=== PATIENT | male | born 1990 | race American Indian/Alaskan Native ===

== ENCOUNTER 2019-04-26 10:23 | Emergency (ER) | payer OTHER ==
[2019-04-26 10:28] VITALS: BP 130/76
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
== END 2019-04-26 11:43 | disposition home or self-care (01) ==
LOC: ED 10:23
DX: S39.012A Strain of muscle, fascia and tendon of lower back, initial encounter (principal); V89.2XXA Person injured in unspecified motor-vehicle accident, traffic, initial encounter; Y93.89 Activity, other specified; Y92.488 Other paved roadways as the place of occurrence of the external cause; Y99.8 Other external cause status
CPT/HCPCS: 99282

== ENCOUNTER 2021-06-25 17:52 | Emergency (ER) | payer BC ==
[2021-06-25] MEDS ORDERED: MORPHINE 4 MG/1 ML INJ IV ONE (22:49)
[2021-06-25] MEDS ORDERED: SODIUM CHLORIDE 0.9% 1000 ML 1,000 ML IV ONE (22:51)
[2021-06-25] MEDS ORDERED: FAMOTIDINE 20 MG/2 ML INJ IV ONE (22:51)
[2021-06-25] MEDS ORDERED: ONDANSETRON 4 MG/2 ML INJ IV ONE (22:51)
--- NOTE | 2021-06-25 23:11 | Emergency Department Report ---
ED N/V/D HPI - General Chief complaint: Nausea/Vomiting/Diarrhea Stated complaint: CANNABINOID HYPEREMESIS PUI?: No Source: patient Mode of arrival: Ambulatory Limitations: No Limitations - History of Present Illness Initial comments: Patient is a 31-year-old -[place] male with a history of cyclic cannabis hyperemesis presents to the ED with acute exacerbation of his hyperemesis syndrome after smoking cannabis 2 days ago. Patient also complains of diffuse abdominal pain, diffuse body aches and pains, muscle spasm and diarrhea for the last 24 hours. Patient states that he has not been able to keep anything down since the onset of the symptoms and now feels generalized weakness and fatigue with lack of appetite. Patient denies hematemesis, hematochezia, fever, chills, dizziness, syncope, chest pain, shortness of breath, headache, palpitations, dysuria, urinary frequency and urgency or testicular pain. MD complaint: nausea, vomiting, diarrhea, abdominal pain -: Sudden, days(s) (2) Description of Vomiting: food contents, bilious Description of Diarrhea: water Associated Abdominal Pain: Yes (Diffuse) Location: diffuse Radiation: none Severity: severe Pain Scale: 7 Quality: cramping, sharp Consistency: constant Improves with: none Worsens with: none Context: other (Cannabis hyperemesis) Associated Symptoms: denies other symptoms, myalgias, loss of appetite, malaise, nausea/vomiting, weakness. denies: chest pain, cough, diaphoresis, fever/chills, headaches, rash, dysuria, shortness of breath, syncope - Related Data Previous Rx's Medication Instructions Recorded Last Taken Type Ibuprofen [Motrin 800 MG tab] 800 mg PO Q8HR PRN #20 tablet 04/26/19 Unknown Rx Methocarbamol [Robaxin] 500 mg PO BID PRN #15 tablet 04/26/19 Unknown Rx Dicyclomine [Bentyl] 20 mg PO Q6H PRN #30 tablet 06/26/21 Unknown Rx Famotidine [Pepcid] 20 mg PO BID #60 tablet 06/26/21 Unknown Rx Ondansetron [Zofran Odt] 4 mg PO Q6HR PRN #20 tab.rapdis 06/26/21 Unknown Rx Ziprasidone [Geodon] 20 mg PO Q12H #20 capsule 06/26/21 Unknown Rx Allergies Allergy/AdvReac Type Severity Reaction Status Date / Time No Known Allergies Allergy Verified 06/25/21 19:04 ED Review of Systems ROS: Stated complaint: CANNABINOID HYPEREMESIS Other details as noted in HPI Constitutional: malaise, weakness. denies: chills, fever Eyes: denies: eye pain, eye discharge, vision change ENT: denies: ear pain, throat pain Respiratory: denies: cough, shortness of breath, wheezing Cardiovascular: chest pain (Chest tightness). denies: palpitations Endocrine: no symptoms reported Gastrointestinal: abdominal pain, nausea, vomiting, diarrhea Genitourinary: denies: urgency, dysuria Musculoskeletal: back pain, arthralgia, myalgia. denies: joint swelling Skin: denies: rash, lesions Neurological: headache. denies: weakness, paresthesias Psychiatric: denies: anxiety, depression Hematological/Lymphatic: denies: easy bleeding, easy bruising ED Past Medical Hx - Past Medical History Previous Medical History?: Yes Additional medical history: hyperemesis - Social History Smoking Status: Never Smoker Substance Use Type: None - Medications Home Medications: Home Medications Medication Instructions Recorded Confirmed Last Taken Type Ibuprofen [Motrin 800 MG tab] 800 mg PO Q8HR PRN #20 tablet 04/26/19 Unknown Rx Methocarbamol [Robaxin] 500 mg PO BID PRN #15 tablet 04/26/19 Unknown Rx Dicyclomine [Bentyl] 20 mg PO Q6H PRN #30 tablet 06/26/21 Unknown Rx Famotidine [Pepcid] 20 mg PO BID #60 tablet 06/26/21 Unknown Rx Ondansetron [Zofran Odt] 4 mg PO Q6HR PRN #20 tab.rapdis 06/26/21 Unknown Rx Ziprasidone [Geodon] 20 mg PO Q12H #20 capsule 06/26/21 Unknown Rx ED Physical Exam - General Limitations: No Limitations General appearance: alert, in no apparent distress, anxious - Head Head exam: Present: atraumatic, normocephalic, normal inspection - Eye Eye exam: Present: normal appearance, PERRL, EOMI Pupils: Present: normal accommodation - ENT ENT exam: Present: normal exam, normal orophraynx, mucous membranes moist, TM's normal bilaterally, normal external ear exam - Neck Neck exam: Present: normal inspection, full ROM - Respiratory Respiratory exam: Present: normal lung sounds bilaterally. Absent: respiratory distress, wheezes, rales, rhonchi, chest wall tenderness, accessory muscle use, decreased breath sounds, prolonged expiratory - Cardiovascular Cardiovascular Exam: Present: normal rhythm, bradycardia, normal heart sounds. Absent: systolic murmur, diastolic murmur, rubs, gallop - GI/Abdominal GI/Abdominal exam: Present: soft, tenderness (Mildly diffuse abdominal tenderness), normal bowel sounds. Absent: guarding, rebound, rigid, hyperactive bowel sounds, hypoactive bowel sounds, organomegaly - Extremities Exam Extremities exam: Present: normal inspection, full ROM, normal capillary refill - Back Exam Back exam: Present: normal inspection, full ROM. Absent: tenderness, CVA tenderness (R), CVA tenderness (L), muscle spasm, paraspinal tenderness, vertebral tenderness - Neurological Exam Neurological exam: Present: alert, oriented X3, CN II-XII intact, normal gait, reflexes normal - Psychiatric Psychiatric exam: Present: normal affect, normal mood, anxious - Skin Skin exam: Present: warm, dry, intact, normal color. Absent: rash ED Course Vital Signs 06/25/21 06/25/21 06/26/21 19:03 23:44 00:14 Temperature 97.4 F L Pulse Rate 47 L Respiratory 20 20 20 Rate Blood Pressure 133/83 O2 Sat by Pulse 100 Oximetry ED Medical Decision Making - Lab Data Result diagrams: 06/25/21 23:12 06/25/21 23:12 - Medical Decision Making This is a 31-year-old -[place] male with a history of cyclic cannabis hyperemesis presents to the ED with acute exacerbation of his hyperemesis syndrome after smoking cannabis 2 days ago. Patient also complains of diffuse abdominal pain, diffuse body aches and pains, muscle spasm and diarrhea for the last 24 hours. Patient states that he has not been able to keep anything down since the onset of the symptoms and now feels generalized weakness and fatigue with lack of appetite. In the ED, patient is alert and oriented x3 and is not in any distress. Patient is anxious, dramatic, afebrile and bradykinetic in triage. Patient is lying on the floor stating that his symptoms have worsened. Patient was treated for nausea and vomiting, also given antacids and pain medications as well as normal saline 1 L IV bolus x1. Patient also receive additional normal saline 1 L IV bolus x1. Lab test results were reviewed and showed acute leukocytosis of 17,700 and BUN of 28 and creatinine of 1.6. The rest of the lab test results were nonactionable. These results are likely due to hyperemesis and dehydration resulting from persistent nausea and vomiting for extended period of time without any oral fluid intake. On reevaluation, patient's nausea and vomiting resolved, patient was able to keep oral fluids in the ED and his pain also resolved with treatment. Patient was discharged home and advised to maintain a clear liquid diet for 12 to 24 hours, and to drink plenty of fluids. Patient was also counseled on the importance of quitting cannabis consumption and abuse to prevent further worsening symptoms. Patient was advised to follow-up with his primary care physician in 3 to 5 days for reevaluation or return to the ED immediately if symptoms get worse. - Differential Diagnosis Gastroenteritis; hyperemesis; dehydration; drug abuse; Critical care attestation.: If time is entered above; I have spent that time in minutes in the direct care of this critically ill patient, excluding procedure time. ED Disposition Clinical Impression: Cannabis hyperemesis syndrome concurrent with and due to cannabis abuse, Dehydration, Abdominal pain in male GERD (gastroesophageal reflux disease) Qualifiers: Esophagitis presence: esophagitis presence not specified Qualified Code(s): K21.9 - Gastro-esophageal reflux disease without esophagitis Disposition: DC-01 TO HOME OR SELFCARE Is pt being admited?: No Does the pt Need Aspirin: No Condition: Stable Instructions: Dehydration, Adult, [id number], Gastroesophageal Reflux Disease, Adult, [id number], Cannabinoid Hyperemesis Syndrome, Abdominal Pain, Adult, [id number] Additional Instructions: All lab test results were reviewed and showed acute leukocytosis, sign of dehydration characterized by elevated BUN and creatinine levels. You were treated in the ED appropriately with 2 L of normal saline IV bolus x1, various medications for pain and antiemetics as well as antacids. Therefore maintain a clear liquid diet for 12 to 24 hours, take medications as advised and drink plenty of fluids. Follow-up with your primary care physician in 3 to 5 days for reevaluation or return to the ED immediately if symptoms get worse. Prescriptions: Dicyclomine [Bentyl] 20 mg PO Q6H PRN #30 tablet PRN Reason: Abdominal pain Ziprasidone [Geodon] 20 mg PO Q12H #20 capsule Famotidine [Pepcid] 20 mg PO BID #60 tablet Ondansetron [Zofran Odt] 4 mg PO Q6HR PRN #20 tab.rapdis PRN Reason: Nausea Referrals: [facility] [Provider Group] - 3-5 Days Forms: Work/School Release Form(ED) Time of Disposition: 01:38 Print Language: BURUNDI[place]
[2021-06-25 23:54] LABS: Hematocrit 47.6 % (35.5-45.6); Hemoglobin 16.4 gm/dl (11.8-15.2); Mean Corpuscular HGB Conc 34 % (32-34); Mean Corpuscular Volume 95 fl (84-94); Platelet Count 241 K/mm3 (140-440); Red Blood Count 5.02 M/mm3 (3.65-5.03); Red Cell Distribution Width 12.4 % (13.2-15.2)
[2021-06-26 00:12] LABS: Alanine Aminotransferase 34 units/L (7-56); Albumin 5.7 g/dL (3.9-5); BUN/Creatinine Ratio 18; Blood Urea Nitrogen 28 mg/dL (9-20); Calcium 10.8 mg/dL (8.4-10.2); Hemolysis Index 10
[2021-06-26] MEDS ORDERED: SODIUM CHLORIDE 0.9% 1000 ML 1,000 ML IV ONE (00:25)
[2021-06-26] MEDS ORDERED: diphenhydrAMINE 50 MG/ML VIAL IV ONE (00:43)
[2021-06-26] MEDS ORDERED: HALOPERIDOL LACTATE 5 MG/1 ML INJ IM ONE (00:43)
[2021-06-26 01:37] LABS: Band Neutrophils # (Manual) 0.4 K/mm3; Total Cells Counted 100
[2021-06-26 01:38] LABS: Platelet Estimate Consistent w Auto; RBC Morphology Normal
[2021-06-26 04:51] VITALS: BP 132/88
== END 2021-06-26 02:30 | disposition home or self-care (01) ==
LOC: ED 17:52
DX: R11.2 Nausea with vomiting, unspecified (principal); F12.10 Cannabis abuse, uncomplicated; E86.0 Dehydration; R10.84 Generalized abdominal pain; K21.9 Gastro-esophageal reflux disease without esophagitis; M62.838 Other muscle spasm; R19.7 Diarrhea, unspecified
CPT/HCPCS: 36415; 80053; 83690; 85007; 85025; 96361; 96372; 96374; 96375; 99283; J1200; J1630; J2270; J2405; J7030